=== PATIENT | female | born 1960 | race Asian ===

== ENCOUNTER 2017-09-05 11:54 | Emergency (ER) | payer OTHER ==
[~2017-09-05] VITALS: Ht 142.2 cm; Wt 51.7 kg
[2017-09-05] MEDS ORDERED: ZOFRAN ODT4 MG PO (14:26)
== END 2017-09-05 14:59 | disposition home or self-care (01) ==
LOC: ED 11:54
DX: R11.10 Vomiting, unspecified (principal); I48.91 Unspecified atrial fibrillation
CPT/HCPCS: 80053; 81001; 85025; 96361; 96374; 99284; J1200; J2405; J7030

== ENCOUNTER 2022-02-16 09:00 | Emergency (ER) | payer OTHER ==
[~2022-02-16] VITALS: Ht 142.2 cm; Wt 51.7 kg
[~2022-02-16 09:00] MED LIST: ZOFRAN ODT4 MG PO
[2022-02-16] MEDS ORDERED: ONDANSETRON ODT4 MG PO (09:38)
[2022-02-16] MEDS ORDERED: NAPROSYN500 MG PO (09:38)
== END 2022-02-16 10:27 | disposition home or self-care (01) ==
LOC: ED 09:00
DX: J10.1 Influenza due to other identified influenza virus with other respiratory manifestations (principal); I48.91 Unspecified atrial fibrillation; Z20.822 Contact with and (suspected) exposure to COVID-19
CPT/HCPCS: 87502; 99283; A9270; C9803; U0003

== ENCOUNTER 2024-08-24 17:42 | Observation (INO) | payer OTHER ==
[~2024-08-24] VITALS: Ht 142.2 cm; Wt 66.1 kg
[~2024-08-24 17:42] MED LIST changes: +NAPROSYN500 MG PO; +ONDANSETRON ODT4 MG PO; +SEVOFLURANE 250 ML BTL INH ONE
[2024-08-24] MEDS ORDERED: CEFTRIAXONE SODIUM 2 GM in SODIUM CHLORIDE 0.9% 100 ML IV ONE (18:15)
[2024-08-24] MEDS ORDERED: SODIUM CHLORIDE 0.9% 1,800 ML IV PRN (18:15)
[2024-08-24 18:21] LABS: BASOPHILS 0.2 % (0.1-1.2); EOSINOPHILS 0.2 % (0.7-5.8); HEMATOCRIT 42.5 % (34.1-44.9); HEMOGLOBIN 14.1 g/dL (11.2-15.7); LYMPHOCYTES 7.1 % (19.3-51.7); MCH 27.5 PG (25.6-32.2); MCHC 33.2 g/dL (32.2-35.5); MCV 82.8 fL (79.4-94.8); MONOCYTES 3.8 % (4.7-12.5); NEUTROPHILS 88.4 % (34.0-71.1); PLATELET COUNT 150 K/uL (182-369); RBC 5.13 M/uL (3.93-5.22)
[2024-08-24] MEDS ORDERED: ondansetron HCL 4 MG/2 ML VIAL IV ONE (18:30)
[2024-08-24] MEDS ORDERED: ACETAMINOPHEN 500 MG TAB PO ONE (18:30)
[2024-08-24 18:32] LABS: INR 1.05 (0.80-1.30); PARTIAL THROMBOPLASTIN TIME 27.9 Sec (22.9-41.3)
[2024-08-24 18:37] LABS: ALBUMIN 3.7 g/dL (3.4-5.0); ALBUMIN/GLOBULIN RATIO 0.9 (1.1-2.4); ANION GAP 14.3 (7-21); BILIRUBIN, TOTAL 0.6 mg/dL (0.2-1.0); BUN/CREATININE RATIO 11.53 (6.0-28.6); CALCIUM 8.6 mg/dL (8.5-10.1); CREATININE, SERUM 0.78 mg/dL (0.55-1.02); POTASSIUM 3.3 mmol/L (3.5-5.1); PROTEIN, TOTAL 7.8 g/dL (6.4-8.2)
[2024-08-24 18:40] LABS: LACTIC ACID, BLOOD 0.8 mmol/L (0.4-2.0)
[2024-08-24 18:49] LABS: BILIRUBIN, URINE NEGATIVE (negative); BLOOD/HGB, URINE TRACE-L (Negative); KETONE, URINE SMALL (Negative); LEUK ESTERASE, URINE SMALL (negative); NITRITE, URINE NEGATIVE (negative)
[2024-08-24] MEDS ORDERED: KETOROLAC TROMETHAMINE 15 MG/ML VIAL IV ONE (19:00)
[2024-08-24 19:01] LABS: BACTERIA, URINE NONE SEEN /hpf (negative); CASTS, URINE NONE SEEN \\lpf; CRYSTALS, URINE NONE SEEN (0-1+); EPITHELIAL CELLS, URINE SQUAMOUS 1+ /lpf (0-1+)
[2024-08-24 19:02] LABS: COLLECTION TYPE, URINE CLEAN CATCH; REFLEX CULTURE, URINE No (No)
[2024-08-24] MEDS ORDERED: SODIUM CHLORIDE 0.9% 1,000 ML IV PRN (21:00)
[2024-08-24] MEDS ORDERED: FAMOTIDINE 20 MG/ 2 ML VIAL IV ONE (22:45)
[2024-08-24] MEDS ORDERED: ondansetron HCL 4 MG/2 ML VIAL IV PRN (23:15)
[2024-08-24] MEDS ORDERED: LACTATED RINGER'S 1,000 ML IV SCH (23:15)
[2024-08-24] MEDS ORDERED: MORPHINE SULFATE 4 MG/ML VIAL IV PRN (23:15)
[2024-08-24 23:19] LABS: CORONAVIRUS COVID-19 AG NEGATIVE (NEGATIVE); INFLUENZA A AG NEGATIVE (NEGATIVE); INFLUENZA B AG NEGATIVE (NEGATIVE)
[2024-08-25] VITALS (14 sets, daily range): BP systolic 113–144; BP diastolic 59–70
--- NOTE | 2024-08-25 00:05 | NUR ---
PATIENT BROUGHT TO FLOOR BY SPRING FITTER VIA STRETCHER. PATIENT TRANSFERRED FROM STRETCHER TO BED USING 1P SBA. PATIENT RESTING IN BED. VS AND BED WEIGHT OBTAINED AND RECORDED. TELE IN PLACE. IV FLUIDS INFUSING PER ORDER. PATIENT EDUCATED TO ROOM AND CALL LIGHT. PATIENT VERBILIZES UNDERSTANDING. CHARGE NURSE REMAINS IN ROOM TO COMPLETE ADMISSION.
--- NOTE | 2024-08-25 01:01 | NUR ---
PATIENT RESTING IN BED WITH EYES CLOSED. RESPIRATIONS EVEN AND UNLABORED. CALL LIGHT IN REACH.
--- NOTE | 2024-08-25 01:34 | NUR ---
BED ALARM ANSWERED. PT NEEDED TO USE BATHROOM. STORE LEADER SBA TO BATHROOM. PT VOIDED AND ASSISTED BACK TO BED. PT STATES NO FURTHER NEEDS AT THIS TIME. CALL LIGHT WITHIN REACH, BED ALARM ON, AND RN IN ROOM.
--- NOTE | 2024-08-25 01:41 | NUR ---
BED ALARM ALARMING. PATIENT UP TO BATHROOM TO VOID USING MINIMAL SBA. PATIENT BACK TO BED. PATIENT HAS NO FURTHER NEEDS. CALL LIGHT IN REACH. BED ALARM ON.
--- NOTE | 2024-08-25 03:41 | NUR ---
PATIENT RESTING IN BED WITH EYES CLOSED. RESPIRATIONS EVEN AND UNLABORED. CALL LIGHT IN REACH.
--- NOTE | 2024-08-25 04:11 | NUR ---
CALL LIGHT ANSWERED. PT NEEDED TO USE BATHROOM. CIGAR PACKER AND PICKER SBA PT TO BATHROOM. PT VOIDED AND ASSISTED BACK TO BED. PT STATES NO FURTHER NEEDS AT THIS TIME. CALL LIGHT WITHIN REACH AND BED ALARM ON.
--- NOTE | 2024-08-25 04:59 | NUR ---
BED ALARM ANSWERED. PT ASSISTED TO BATHROOM. VITALS AND I&O OBTAINED. NO FURTHER NEEDS AT THIS TIME. CALL LIGHT WITHIN REACH AND BED ALARM ON.
[2024-08-25 05:15] LABS: BASOPHILS 0.2 % (0.1-1.2); EOSINOPHILS 0.2 % (0.7-5.8); HEMOGLOBIN 11.8 g/dL (11.2-15.7); LYMPHOCYTES 9.5 % (19.3-51.7); MCH 27.6 PG (25.6-32.2); MCHC 32.8 g/dL (32.2-35.5); MCV 84.3 fL (79.4-94.8); MONOCYTES 4.8 % (4.7-12.5); NEUTROPHILS 84.9 % (34.0-71.1); PLATELET COUNT 136 K/uL (182-369); RBC 4.27 M/uL (3.93-5.22)
[2024-08-25 05:29] LABS: ALBUMIN 2.7 g/dL (3.4-5.0); ALBUMIN/GLOBULIN RATIO 0.77 (1.1-2.4); ANION GAP 10.3 (7-21); BILIRUBIN, TOTAL 0.4 mg/dL (0.2-1.0); BUN/CREATININE RATIO 8.57 (6.0-28.6); CALCIUM 7.1 mg/dL (8.5-10.1); CREATININE, SERUM 0.7 mg/dL (0.55-1.02); POTASSIUM 3.3 mmol/L (3.5-5.1); PROTEIN, TOTAL 6.2 g/dL (6.4-8.2)
[2024-08-25] MEDS ORDERED: CEFAZOLIN SODIUM 1 GM/10 ML SYR IV SCH (06:00)
--- NOTE | 2024-08-25 06:20 | NUR ---
SCHEDULED IV ABX ADMINISTERED. PATIENT HAS NO FURTHER NEEDS. CALL LIGHT IN REACH.
--- NOTE | 2024-08-25 07:25 | NUR ---
RECIEVED REPORT FROM JUDY FONTANEZ. PT AWAKE IN BED, STATES SHE NEEDS TO USE RESTROOM. PT UP TO RESTROOM WITH LINE AND TUBE MANAGEMENT. PT BACK TO BED, STATES NO FURTHER NEEDS AT THIS TIME, CALL LIGHT WITHIN REACH.
--- NOTE | 2024-08-25 08:56 | NUR ---
PATIENT BRUSHED HER TEETH AND WASHED HER FACE THIS MORING. REFUSED SHOWER.
[2024-08-25] MEDS ORDERED: FAMOTIDINE 20 MG/ 2 ML VIAL IV SCH ×2 (09:00→09:20)
[2024-08-25] MEDS ORDERED: KETOROLAC TROMETHAMINE 30 MG/ML VIAL IV PRN ×2 (09:30→17:00)
[2024-08-25] MEDS ORDERED: CEFAZOLIN SODIUM 2 GM/20 ML SYR IV SCH (09:30)
[2024-08-25] MEDS ORDERED: ondansetron HCL 4 MG/2 ML VIAL IV PRN (09:30)
[2024-08-25] MEDS ORDERED: MORPHINE SULFATE 10 MG/ML VIAL IV PRN ×2 (09:30→11:00)
[2024-08-25] MEDS ORDERED: LACTATED RINGER'S 1,000 ML IV SCH (09:30)
--- NOTE | 2024-08-25 09:46 | NUR ---
PT COMPLETES OWN PRE OP [place], VERBALIZES UNDERSTANDING OF PLANNED PROCEDURE AND CONSENT FORM. LINENS CLEAN, NEW GOWN AND SOCKS IN PLACE. PT STATES NO FURTHER NEEDS AT THIS TIME, CALL LIGHT WITHIN REACH.
[2024-08-25] MEDS ORDERED: SODIUM CHLORIDE 0.9% 40 ML IV ONE (10:15)
[2024-08-25] MEDS ORDERED: iopamidoL 30 ML VIAL ONE (10:15)
[2024-08-25] MEDS ORDERED: fentaNYL citrate 100 MCG/2 ML VIAL ONE (10:20)
[2024-08-25] MEDS ORDERED: fentaNYL citrate 50 MCG/ML SDV IV PRN (11:00)
[2024-08-25] MEDS ORDERED: MORPHINE SULFATE 10 MG/ML VIAL ONE (11:17)
[2024-08-25] MEDS ORDERED: PHENYLEPHRINE HCL 10 MG/ML VIAL ONE (11:21)
[2024-08-25] MEDS ORDERED: LIDOCAINE HCL 2% 5 ML SDV ONE (11:21)
[2024-08-25] MEDS ORDERED: ROCURONIUM BROMIDE 50 MG/5 ML SYR ONE (11:21)
[2024-08-25] MEDS ORDERED: ondansetron HCL 4 MG/2 ML VIAL ONE (11:21)
[2024-08-25] MEDS ORDERED: propofoL 200 MG/20 ML VIAL ONE (11:21)
[2024-08-25] MEDS ORDERED: DEXAMETHASONE SOD PHOS 4 MG/ML VIAL ONE ×2 (11:21)
[2024-08-25] MEDS ORDERED: TYLENOL EXTRA500 MG PO (12:24)
[2024-08-25] MEDS ORDERED: MOTRIN IB200 MG PO (12:24)
[2024-08-25] MEDS ORDERED: OXYCONTIN10 MG PO (12:24)
[2024-08-25] MEDS ORDERED: OXYCODONE HCL 5 MG TAB PO PRN ×2 (13:00→21:45)
[2024-08-25] MEDS ORDERED: IBUPROFEN 600 MG TAB PO PRN (13:00)
[2024-08-25] MEDS ORDERED: ACETAMINOPHEN 500 MG TAB PO PRN (13:00)
--- NOTE | 2024-08-25 13:00 | NUR ---
[facility] PT APPEARS TO BE DROWSY. RECIEVED REPORT FROM SURGERY RN. CPOX IN PLACE, SCDs IN PLACE AND ON. IV FLUIDS RUNNING PER ORDER. VSS. AT THE BEDSIDE. PT RESPONDS TO VOICE AND IS ABLE TO INDEPENDENLTY ASK QUESTIONS, STATES NO NEED FOR PAIN CONTROL MEASURES AT THIS TIME. PT AND STATE NO FURTHER NEEDS AT THIS TIME, CALL LIGHT WITHIN REACH.
--- NOTE | 2024-08-25 13:06 | NUR ---
08/25/24 1306 Savanna Almanza 1201 PT ARRIVED IN PACU NON RESPONSIVE TO NOXIOUS STIMULI WITH OPA IN PLACE. CHIN LIFT HELD BY RN. 1213 PT REACTIVE. OPA REMOVED. 1220 PT AWAKENS, THEN FALLS BACK TO SLEEP. 1230 OXYGEN REMOVED. SATS 90% ON RA. 1245 PT O2 SATS DROPPED TO 88% ON RA WITH COUGH, DEEP BREATHING. 02 AT 2L VIA NC PLACED. SATS INCREASED TO 96%. 1257 TO ROOM 115. BED PLUGGED IN AND REPORT GIVEN TO RN'S.
[2024-08-25] MEDS ORDERED: NALOXONE HCL 0.4 MG SYR IV PRN (15:00)
[2024-08-25] MEDS ORDERED: droPERidol 5 MG/2 ML VIAL IV PRN (15:00)
--- NOTE | 2024-08-25 15:02 | NUR ---
PT RESTING IN BED, DROWSY, BUT EASILY AROUSED. AT BEDSIDE. LAP SITES TO ABD CDI, NO REQUESTS AT THIS TIME. CALL LIGHT WITHIN REACH. CPOX AND SCDS ON.
--- NOTE | 2024-08-25 16:28 | NUR ---
PT LYING IN BED, APPEARS TO CONTINUE TO BE DROWSY. PT AWAKENS TO VOICE. PT STATES PAIN IS 8/10, REQUESTS PRN PAIN MEDICATION AND STATES SHE DOES NOT FEEL LIKE SHE CAN INTAKE ORALLY YET SHE IS MILDLY NAUSEAS, PT DECLINES ANTINAUSEA MEDICATION. PRN IV PAIN MEDICATION GIVEN PER PT REQUEST. PT STATES NO FURTHER NEEDS AT THIS TIME, VSS, CALL LIGHT WITHIN REACH. CPOX AND SCDs REMAIN IN PLACE.
--- NOTE | 2024-08-25 17:01 | NUR ---
DR. ARGUETA STATES TO THIS RN ON PHONE TO DC MORPHINE IV WELL FENTANYL IV. STATES TO ORDER TORADOL IV Q8 PRN. ORDERS ENTERED, REPEAT BACK PERFORMED.
--- NOTE | 2024-08-25 17:23 | NUR ---
PT SITTING UP ON THE EDGE OF THE BED EATING DINNER TRAY, AT THE BEDSIDE. PT STATES NO NEEDS AT THIS TIME, CALL LIGHT WITHIN REACH.
--- NOTE | 2024-08-25 17:44 | NUR ---
PT RESTING IN BED. VISITOR IN ROOM. PT HAS BEEN SLEEPING MOST OF THE AFTERNOON. CALL LIGHT WITHIN REACH. PT REPORTS NEEDING NOTHING ELSE AT THIS TIME.
--- NOTE | 2024-08-25 19:46 | NUR ---
AFTER REPORT FROM TRACI KIM. ROUNDED IN PATIENT ROOM, PATIENTS REPORTS HAVING PAIN AT THIS TIME. SHE IS ALERT AND ORIETNED. SHE HAS NO OTHER REQUESTS AT THIS TIME.
[2024-08-25] MEDS ORDERED: FAMOTIDINE 20 MG TAB PO SCH (21:00)
--- NOTE | 2024-08-25 22:02 | NUR ---
PATIENT BACK TO BED AFTER UP TO BEDSIDE COMMODE, TOLERATED ACTIVITY WELL ONE PERSON ASSIST, ONCE BACK TO BED PATIENT CALLED NURSES STATION TO REPORTS TIGHTNESS IN HER CHEST/DIFFICULTY BREATHING, V/S STABLE, ON CARDIAC TELEMETRY NSR HEART RATE 96/MIN. PATIENT 95% OXYGEN SATURATION ON ROOM AIR. PATIENT HEAD OF BED SAT UP, SHE IMMEDIATELY FELT RELIEF. SHE THEN SAID THE SHORTNESS OF BREATH FELT LIKE SHE HAD SOMETHING IN HER THROAT STUCK. SHE NOW REPORTS NO SYMPTOMS. SHE DOES REPORT HER PAIN 7/10, SHE REPORTS NO IMPROVEMENT FROM TYLENOL AND MOTRIN, OXYCODONE 5MG PO PRN ADMINISTERED NOW.
--- NOTE | 2024-08-26 00:55 | NUR ---
PATIENT UP TO AMBULATE TO BATHROOM, SHE REPORTS SHUBHAM IS WELL MANAGED AT THIS TIME. SHE VOIDED 200ML URINE. PATIENT STANDBY ASSIST. SMALL AMOUNT OF NEW SEROUS/SANGUINEOUS DRAINAGE NOTED AT Q LAP SITE WNL. PATIENT BACK TO BED SCDS ON, NEW ICE PACK PROVIDED.
[2024-08-26 02:30] VITALS: BP 91/69
[2024-08-26 02:38] VITALS: BP 91/69
[2024-08-26 06:10] VITALS: BP 114/60
[2024-08-26 06:11] VITALS: BP 114/60
--- NOTE | 2024-08-26 06:26 | NUR ---
PATIENT ALERT AND ORIENTED, SHE REPORTS PAIN IS MILD, NO NEED FOR MEDICATION AT THIS TIME, EDUCATION PROVIDED ON PLAN OF CARE FOR TODAY, UP TO CHAIR FOR MEALS AND AMBULATING IN HALLS. CLEAN GOWN CHANGE, HER UNDER FARRELL IS ON NOW. V/S STABLE. LAPS SITE WNL, MINIMAL DRAINAGE NOTED. FRESH ICE PACK PROVIDED. PATIENT REPORTS NO OTHER NEEDS AT THIS TIME.
--- NOTE | 2024-08-26 07:53 | NUR ---
RECIEVED REPORT BY JUDY VILLA. PATIENT AWAKE IN BED. PATIENT DENIES PAIN AT THIS TIME. SHE DENIES ANY NEEDS AT THIS TIME, CALL LIGHT AT REACH.
[2024-08-26 08:59] VITALS: BP 104/56
--- NOTE | 2024-08-26 09:05 | NUR ---
PT AWAKE AND ALERT WHEN I ENTERED THE ROOM. PT STATED THE DR HAD JUST BEEN IN HER ROOM. TOOK TRASH OUT. PT HAS FULL GLASS OF WATER, DOES NOT WANT ICE. CALL LIGHT WITHIN REACH. PT DOES NOT WANT ANYTHING ELSE AT THIS TIME.
--- NOTE | 2024-08-26 09:30 | NUR ---
BOTH IVs DC'D WNL. SITES WRAPPED IN GAUZE AND COBAN. PT EDUCATION ON AFTERCARE. PT VERBALIZES UNDERSTANDING.
[2024-08-26 11:10] VITALS: BP 111/75
--- NOTE | 2024-08-26 11:15 | NUR ---
PATIENT DRESSED IN OWN CLOTHES INDEPENTLY. VSS. DC PACKET AND EDUCATION GIVEN, PATIENT AND VERBALIZED UNDERSTANDING, STATED ALL QUESTIONS HAVE BEEN ANSWERED. WRITTEN PRESCRIPTION GIVEN. PATIENT AMBULATES TO , WHEELED TO FRONT OF BUILDING BY NURSING PERSONEL.
--- NOTE | 2024-08-26 12:14 | EKG ---
[facility] [address] [facility] [place], [place] [address] Signed Sinus tachycardia Otherwise normal ECG Confirmed by Ajit Cope DO ([id number]) on 08/26/2024 12:14:06 PM Electronically Signed By: AJIT COPE DO 08/26/24 1214 PATIENT NAME: ALONSO HARRY FRANKChing Electrocardiogram DATE OF : 60 PHYSICIAN: AJIT COPE DO REPORT #: [id number] REPORT IS CONFIDENTIAL AND NOT TO BE RELEASED WITHOUT AUTHORIZATION
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
--- NOTE | 2024-08-26 15:08 | OR ---
[facility] [address] [place], [place] [address] Signed DATE OF OPERATION: 08/25/2024 SURGEON: Wilfrido Argueta MD PREOPERATIVE DIAGNOSIS: Acute calculous cholecystitis. POSTOPERATIVE DIAGNOSIS: Acute calculous cholecystitis. PROCEDURES: 1. Laparoscopic cholecystectomy with intraoperative cholangiogram. 2. Surgeon-directed fluoroscopy. ANESTHESIA: General endotracheal; Antonio Foster CRNA and local 10 mL of 0.25% Marcaine with epinephrine. INDICATION: This 63-year-old woman presented to the emergency room late last night and evaluated by Dr. Hill and subsequently Dr. Bartholomew for right upper abdominal and right subscapular pain. She has had episodes of similar type for many years. Evaluation included a CT scan of the abdomen showed a distended gallbladder and large calcified gallstone. Clinical findings were completely consistent with acute calculous cholecystitis. She has been admitted to the hospital, given intravenous fluid resuscitation, IV antibiotic Ancef and now to undergo cholecystectomy preferred by laparoscopic approach. Her liver enzymes are normal. The risk of bleeding, infection, bile duct injury, need for open procedure, and need for other indicated procedures was reviewed with her in detail. She understands and wished to proceed. FINDINGS: Indeed the gallbladder was acutely inflamed and quite distended. Did require decompression of dark clear bile. Once excised, the gallbladder had a single stone approximately 2.5 cm in size, which was rounded and there was no evidence of neoplasm in the mucosa of the gallbladder. Intraoperative cholangiogram was normal. Quite notably, she had a relatively short cystic duct. Special care was taken to avoid encumbrance of the main bile duct and she had no complications with operation at all. DESCRIPTION OF PROCEDURE: The patient was brought to the operating room, given a general endotracheal anesthetic. Electronically Signed By: WILFRIDO ARGUETA MD 08/26/24 1508 PATIENT NAME: ALONSO HARRY OPERATIVE REPORT DATE OF : 60 REPORT #: [id number] PHYSICIAN: WILFRIDO ARGUETA MD PCP: KARI MATIAS MD REPORT IS CONFIDENTIAL AND NOT TO BE RELEASED WITHOUT AUTHORIZATION [facility] [address] [place], [place] [address] Signed Preoperative antibiotic Ancef had been given. Sequential compression device stockings used and heparin subcutaneously administered. The abdomen was prepared with a chlorhexidine solution and draped sterilely. An infraumbilical incision was made and using an open Charleen cannula technique, pneumoperitoneum was achieved to a level of 14 mmHg with carbon dioxide gas. Intra-abdominal inspection showed no sign of ascites or carcinomatosis. A distended gallbladder was visualized showing acute and chronic inflammation. The liver was normal. Three additional trocars were placed in usual configuration in the subxiphoid, right midclavicular, and right anterior axillary line. Gallbladder was elevated cephalad, but was very difficult to grasp and on that basis decompression was undertaken with a laparoscopic needle device draining dark bile. The puncture site was grasped and elevation of the gallbladder was without impediment. Inspection of the infundibulum showed the common bile duct to be visualized and not too far from the gallbladder itself. Special care was taken in dissection on that basis alone. The infundibulum was grasped and retracted laterally and using blunt and electrocautery dissection, meticulous care was undertaken to define ultimately the cystic duct. The cystic duct appeared to be relatively short in relation to everything. A clip was applied across the gallbladder cystic duct junction and a transverse choledochotomy made in the cystic duct allowing for egress of clear bile. Using the Blankenship type cholangiocatheter, intraoperative cholangiography was undertaken showing free flow of contrast in the common bile duct and into the duodenum. There was no significant retrograde flow in the common hepatic duct and on that basis, she was administered 2 mg of morphine intravenously. Repeat cholangiogram then showed good retrograde filling to the common hepatic duct. There was no impediment or impact of the small cystic duct on the surrounding structures. Three clips were applied to the cystic duct remnant after removal of the catheter, taking special care to maintain occlusion of the cystic duct only and no other area. The cystic duct was transected. The gallbladder was then dissected free in a retrograde fashion using electrocautery. A small amount of bile was spilled during the course of dissection, but no stones or other problem. The gallbladder was placed in an endobag and extracted through the infraumbilical port site, opened on the back table and found to have a subacute and chronic inflammation of mucosa. A relatively large gallstone approximately 2.5 cm in size, which was dark green. Irrigation was undertaken of the subhepatic space. Excess irrigation fluid was suctioned free. Notably, the liver appeared normal. The trocars were removed under direct visualization showing no sign of bleeding. Not mentioned previously was need for placement of two epigastric trocar port sites as the initial one had bleeding requiring a James-Umm closure of the fascia to secure hemostasis. The skin incisions were additionally closed with Vicryl and Steri-Strips were applied. The patient was extubated in the operating room, transferred to recovery room in good condition having suffered no complication. Sponge, needle, and instrument Electronically Signed By: WILFRIDO ARGUETA MD 08/26/24 1508 PATIENT NAME: ALONSO HARRY FRANKChing OPERATIVE REPORT DATE OF : 60 REPORT #: [id number] PHYSICIAN: WILFRIDO ARGUETA MD PCP: KARI MATIAS MD REPORT IS CONFIDENTIAL AND NOT TO BE RELEASED WITHOUT AUTHORIZATION [address] [place] [address] Signed counts were reported as correct x3. MD IVONE Crain/PRATIMA /[id number] cc: Dr. Dylan Matias MD Copies: KARI MATIAS MD ~ Electronically Signed By: WILFRIDO ARGUETA MD 08/26/24 1508 PATIENT NAME: ALONSO HARRY OPERATIVE REPORT DATE OF : 60 REPORT #: [id number] PHYSICIAN: WILFRIDO ARGUETA MD PCP: KARI MATIAS MD REPORT IS CONFIDENTIAL AND NOT TO BE RELEASED WITHOUT AUTHORIZATION
--- NOTE | 2024-08-29 16:46 | PATH ---
[facility] [address] [facility] [place], [place] [address] Signed SPECIMEN(S): A GALLBLADDER SPECIMEN SOURCE: A. GALLBLADDER CLINICAL HISTORY: Acute cholecystitis, abdominal pain, N/V FINAL PATHOLOGIC DIAGNOSIS: Gallbladder, cholecystectomy: - Chronic calculous cholecystitis. JVR:clv MICROSCOPIC EXAMINATION: Histologic sections of all submitted blocks are examined by light microscopy. These findings, together with the gross examination, support the pathologic diagnosis. GROSS DESCRIPTION: The specimen, labeled and designated "Jona, gallbladder," is received in formalin and consists of Specimen: Previously opened gallbladder. Dimensions: 8.0 x 3.0 x 1.5 cm. Serosa: [place] to yellow-gutierrez and smooth. Cystic Duct: Unobstructed, margin inked black and shaved. Calculi: A green-black rounded calculus (2.2 x 2.0 x 1.8 cm). Mucosa: Gutierrez-green and velvety. Wall thickness: 0.2-0.4 cm. Lymph node: No pericystic lymph nodes are grossly identified. Additional: None. Stopper Maker Helper sections are submitted in (A1). VB (under the direct supervision of a pathologist) The Gross Description was prepared using a voice recognition system. The report was reviewed for accuracy; however, sound-alike word errors, addition and/or deletions may occur. If there is any question about this report, please contact Client Services. PERFORMING LABORATORY: Technical component was performed by [facility], [address] [place] [id number] (CLIA# [id number]). Professional interpretation was performed by [facility] [place] [facility], [address] PATIENT NAME: ALONSO HARRY PATHOLOGY DATE OF : 60 REPORT #: [id number] PHYSICIAN: [facility] PCP: KARI JOYNER MD REPORT IS CONFIDENTIAL AND NOT TO BE RELEASED WITHOUT AUTHORIZATION [facility] [address] [place], [place] [address], [place] [address] (CLIA#: [id number]). Diagnostician: Chidi Stock MD Pathologist Electronically Signed 08/29/2024 Copies: ~ PATIENT NAME: ALONSO HARRY PATHOLOGY DATE OF : 60 REPORT #: [id number] PHYSICIAN: [facility] PCP: KARI JOYNER MD REPORT IS CONFIDENTIAL AND NOT TO BE RELEASED WITHOUT AUTHORIZATION
== END 2024-08-26 11:21 | disposition home or self-care (01) ==
LOC: ED 17:42 → MS 17:44
PROVIDERS: Emergency Medicine; Internal Medicine; ADMIT Surgery; ATTEND Surgery
PROC: BF101ZZ Fluoroscopy of Bile Ducts using Low Osmolar Contrast (ICD-10-PCS; 2024-08-25)
PROC: 0FT44ZZ Resection of Gallbladder, Percutaneous Endoscopic Approach (ICD-10-PCS; principal; 2024-08-25 10:43)
DX: K80.12 Calculus of gallbladder with acute and chronic cholecystitis without obstruction (principal); E66.9 Obesity, unspecified; Z68.32 Body mass index [BMI] 32.0-32.9, adult
CPT/HCPCS: 00790; 36415; 71045; 74177; 74300; 80053; 81001; 83605; 85025; 85610; 85730; 87040; 93005; 93010; 94762; 96361; 96375; 96376; 99285-25; A9270; G0378; J0690; J0696; J1100; J1885; J2003; J2270; J2371; J2405; J2704; J3010; J3490; J7030; J7121; Q9967